=== PATIENT | male | born 1955 | race Caucasian/White ===

== ENCOUNTER 2020-08-09 10:32 | Observation (INO) | payer MEDICARE ==
[2020-08-09 12:50] VITALS: BMI 40.1
[2020-08-09 13:30] LABS: SARS-CoV-2 NAA Rapid Test Not Detected (NotDetected)
[2020-08-09] MEDS ORDERED: Dextrose 5% in Water 1,000 ML IV PRN (13:46)
[2020-08-09] MEDS ORDERED: Dextrose 50% Abboject 50 ML SYRINGE SLOW IVP PRN (13:46)
[2020-08-09] MEDS ORDERED: Nicotine 21 MG PATCH TD SCH (14:00)
[2020-08-09 14:33] LABS: Troponin I 0.348 ng/mL (< 0.028)
[2020-08-09] MEDS: Budesonide 0.5 MG/2 ML NEB NEB SCH (19:38)
[2020-08-09 20:36] VITALS: BP 130/81
[2020-08-09] MEDS ORDERED: Atorvastatin Calcium 10 MG TAB PO SCH (21:00)
[2020-08-09 21:22] VITALS: TEMP 98.2
[2020-08-09] MEDS: Gemfibrozil 600 MG TAB PO SCH (22:14)
[2020-08-09] MEDS: Enoxaparin Sodium 120 MG/0.8 ML SYRINGE SC SCH (22:14)
[2020-08-09] MEDS ORDERED: Zolpidem Tartrate 5 MG TAB PO PRN (22:19)
[2020-08-09] MEDS ORDERED: Acetaminophen 325 MG TAB PO PRN (22:20)
[2020-08-09] MEDS: HumaLOG 300 UNITS/3 ML VIAL SC PRN (22:28)
[2020-08-10 05:23] LABS: #Monocytes 0.6 10x3/uL (0.0-1.1); #Neutrophils 5.8 10x3/uL (1.5-8.4); %Basophils 0.1 % (0.0-2.0); %Neutrophils 77.4 % (40.0-75.0); Hemoglobin 11.7 g/dL (13.5-17.5); Mean Corpuscular Hemoglobin 24.9 pg (27.0-33.0); Mean Corpuscular Volume 80.2 fl (81.2-95.1); Mean Platelet Volume 9.8 fl (7.4-10.4); Platelet Count 259 10x3/uL (150-450); RBC Distribution Width 15.2 % (11.5-14.5); White Blood Cell (WBC) Count 7.5 10x3/uL (3.5-10.5)
[2020-08-10 05:27] LABS: ALT (SGPT) 19 U/L (8-55); AST (SGOT) 19 U/L (5-34); Alkaline Phosphatase 68 U/L (40-110); Anion Gap 18 mmol/L (10-20); BUN (Urea Nitrogen) 16 mg/dL (8.4-25.7); Bilirubin, Total 0.3 mg/dL (0.2-1.2); Calc. Creatinine Clearance 92 mL/min (70-130); Calcium 9.5 mg/dL (7.8-10.44); Carbon Dioxide 22 mmol/L (23-31); Chloride 100 mmol/L (98-107); Globulin 3.2 g/dL (2.4-3.5); Glucose 388 mg/dL (80-115); Magnesium 1.8 mg/dL (1.6-2.6); Potassium 4.2 mmol/L (3.5-5.1); Protein, Total 7.2 g/dL (5.8-8.1); Sodium 136 mmol/L (136-145)
[2020-08-10] MEDS: HumaLOG 300 UNITS/3 ML VIAL SC PRN (06:57)
[2020-08-10] MEDS: Budesonide 0.5 MG/2 ML NEB NEB SCH (07:15)
[2020-08-10] MEDS ORDERED: predniSONE 20 MG TAB PO SCH (08:00)
[2020-08-10 08:36] LABS: Troponin I 0.464 ng/mL (< 0.028)
[2020-08-10] MEDS ORDERED: Aspirin 325 mg Enteric Coated Tablet PO SCH (09:00)
[2020-08-10] MEDS ORDERED: Lisinopril 2.5 MG TAB PO SCH (09:00)
[2020-08-10] MEDS ORDERED: Enoxaparin Sodium 40 MG/0.4 ML SYRINGE SC SCH (09:00)
[2020-08-10] MEDS: Gemfibrozil 600 MG TAB PO SCH (09:49)
[2020-08-10] MEDS: Enoxaparin Sodium 120 MG/0.8 ML SYRINGE SC SCH (09:52)
== END 2020-08-10 11:04 | disposition left against medical advice (07) ==
LOC: INTOOBSV 10:32 → CSHTELE 10:32
PROVIDERS: ADMIT Internal Medicine; ATTEND Family Medicine
DX: J96.00 Acute respiratory failure, unspecified whether with hypoxia or hypercapnia (principal); I11.0 Hypertensive heart disease with heart failure; I50.43 Acute on chronic combined systolic (congestive) and diastolic (congestive) heart failure; J44.9 Chronic obstructive pulmonary disease, unspecified; J81.1 Chronic pulmonary edema; E11.9 Type 2 diabetes mellitus without complications; E78.5 Hyperlipidemia, unspecified; I25.2 Old myocardial infarction; G89.29 Other chronic pain; M54.9 Dorsalgia, unspecified; F17.210 Nicotine dependence, cigarettes, uncomplicated; Z79.899 Other long term (current) drug therapy; Z79.82 Long term (current) use of aspirin; Z79.84 Long term (current) use of oral hypoglycemic drugs
CPT/HCPCS: 0240U; 80053; 82962; 83735; 84484 ×2; 85025; 93306; 94640 ×3; 96372; G0378 ×2; 36416; J1650; J7512; J7620; J7626